=== PATIENT | female | born 1970 | race Caucasian/White ===

== ENCOUNTER 2018-02-05 03:49 | Emergency (ER) | END 2018-02-05 06:26 | disposition home or self-care (01) ==

== ENCOUNTER 2018-03-15 16:23 | Emergency (ER) | END 2018-03-15 20:24 | disposition home or self-care (01) ==

== ENCOUNTER 2018-06-21 06:41 | Emergency (ER) | payer MEDICAID ==
[~2018-06-21] VITALS: Ht 167.6 cm; Wt 65.1 kg
[~2018-06-21 06:41] MED LIST: IBUP-1542 PO; LORA-441 PO; METH750T93 PO; NAPR-985 PO; POLY17PO6 PO; SULF1TAB31 PO
[2018-06-21 06:45] VITALS: BP 141/67; PULSE 72; RESP 20; Ht 167.6 cm; Wt 65.1 kg
[2018-06-21] MEDS ORDERED: KETOROLAC 60 MG INJ IM STA (07:17)
[2018-06-21] MEDS ORDERED: METHYLPREDNISOLONE ACET 80 MG/ML 1 ML IM ONE (07:30)
[2018-06-21] MEDS ORDERED: DIPHENHYDRAMINE 50 MG CAP PO ONE ×2 (07:30→08:00)
[2018-06-21] MEDS ORDERED: DEXAMETHASONE 10 MG/ML 1 ML INJ IM ONE (07:30)
[2018-06-21] MEDS ORDERED: CYCLOBENZAPRINE 10 MG TAB PO ONE (07:30)
[2018-06-21] MEDS ORDERED: traMADol 50 MG TAB PO ONE (07:30)
[2018-06-21] MEDS ORDERED: TRAM50TA2 PO (08:25)
[2018-06-21] MEDS ORDERED: NAPR-985 PO (08:25)
[2018-06-21] MEDS ORDERED: BEN50 PO (08:25)
[2018-06-21] MEDS ORDERED: FLUT16SP17 NASAL (08:36)
--- NOTE | 2018-06-21 08:42 | ERD ---
ER Documentation Chief Complaint Chief Complaint Complains of severe headache x 3 days HPI 47 year-old [female] coming in today with Chief Complaint: Headache History of Present Illness: Patient coming in today with complaint of gradual onset headache for 3 days. Associated symptoms include nasal congestion, facial pain, bilateral eye pain. Denies any other associated symptoms. Ibuprofen taken at home without relief of symptoms. Denies sick contacts, denies feeling sick. Review of systems: All systems were reviewed and are negative except for what is indicated in the history of present illness. Past Medical History: [Negative for hypertension, diabetes or other medical problems] Social History: [Patient denies tobacco, alcohol, elicit drug use] Medications: [None] [Reviewed as documented Nursing Notes] Allergies: [NKDA] [Reviewed as documented in Nursing Notes] Social Concerns: Denies ROS All systems reviewed and are negative except as per history of present illness. Medications Home Meds Active Scripts Cyclobenzaprine Hcl* (Cyclobenzaprine Hcl*) 10 Mg Tablet, 10 MG PO TID for upper back/neck tension, #15 TAB Prov:ELMA VALLEJO NP 06/21/18 Fluticasone Propionate* (Fluticasone Propionate* Nasal) 50 Mcg/[place] - 16 Gm [place].susp, 1 SPRAY NASAL DAILY for nasal congetion, #1 BOTTLE TO EACH NOSTRIL Prov:ELMA VALLEJO NP 06/21/18 Diphenhydramine Hcl* (Benadryl*) 50 Mg Cap, 50 MG PO QHS PRN for sinus headache at night, #30 CAP Prov:ELMA VALLEJO NP 06/21/18 Naproxen* (Naprosyn*) 500 Mg Tablet, 500 MG PO BID PRN for PAIN AND/OR INFLAMMATION, #30 TAB Prov:ELMA VALLEJO NP 06/21/18 Tramadol HCl (Tramadol HCl) 50 Mg Tablet, 50 MG PO Q6 PRN for PAIN LEVEL 6-10, #10 TAB Prov:ELMA VALLEJO NP 06/21/18 Methocarbamol* (Robaxin*) 750 Mg Tablet, 750 MG PO TID PRN for MUSCLE SPASMS, #30 TAB Prov:DANO GONZALEZ DO 03/15/18 Ibuprofen* (Motrin*) 600 Mg Tab, 600 MG PO Q6H PRN for PAIN AND OR ELEVATED TEMP, #30 TAB Prov:DANO GONZALEZ DO 03/15/18 Polyethylene Glycol* (Miralax*) 17 Gm Powd.pack, 17 GM PO DAILY, #30 PACKET Prov:DANO MACKENZIE MD 02/05/18 Ibuprofen* (Motrin*) 600 Mg Tab, 600 MG PO Q6H PRN for PAIN AND OR ELEVATED TEMP, #20 TAB Prov:DANO MACKENZIE MD 02/05/18 Sulfamethoxazole/Trimethoprim* (Bactrim Ds* Tablet) 1 Each Tablet, 1 TAB PO BID, #14 TAB Prov:DANO MACKENZIE MD 02/05/18 Lorazepam* (Ativan*) 0.5 Mg Tablet, 0.5 MG PO Q8, #3 TAB Prov:ALESIA SALGUERO DO 10/08/15 Naproxen* (Naprosyn*) 500 Mg Tablet, 500 MG PO BID PRN for PAIN AND/OR INFLAMMATION, #14 TAB Prov:ALESIA SALGUERO DO 10/08/15 Discontinued Scripts Cyclobenzaprine Hcl* (Cyclobenzaprine Hcl*) 10 Mg Tablet, 10 MG PO TID for upper back/neck tension, #15 TAB Prov:ELMA VALLEJO NP 06/21/18 Allergies Allergies: Coded Allergies: No Known Allergy (Unverified , 10/08/15) PMhx/Soc History of Surgery: Yes (c section ) Anesthesia Reaction: No Hx Neurological Disorder: No Hx Respiratory Disorders: No Hx Cardiac Disorders: No Hx Psychiatric Problems: No Hx Miscellaneous Medical Probl: No Hx Alcohol Use: No Hx Substance Use: No Hx Tobacco Use: No FmHx Family History: No diabetes, No coronary disease Physical Exam Vitals Vital Signs Date Temp Pulse Resp B/P (MAP) Pulse Ox O2 O2 Flow FiO2 Time Delivery Rate 06/21/18 99.1 72 20 141/67 97 06:45 (91) Physical Exam Const: No acute distress Head: Atraumatic; tenderness to palpation over frontal and maxillary sinuses. Eyes: Normal Conjunctiva ENT: Normal External Ears, Mouth; erythema to nasal mucosa, turbinates swollen Neck: Full range of motion. No meningismus, patient able to move neck without difficulty. Tenderness to palpation to trapezius muscles. Resp: Clear to auscultation bilaterally Cardio: Regular rate and rhythm, no murmurs Abd: Soft, non tender, non distended. Normal bowel sounds Skin: No petechiae or rashes Back: No midline or flank tenderness Ext: No cyanosis, or edema Neur: Awake and alert. Patient speaking in clear sentences. Neuro exam unremarkable. Cranial nerves intact. Psych: Normal Mood and Affect Results 24 hrs Laboratory Tests Test 06/21/18 07:43 POC Beta HCG, Qualitative NEGATIVE Current Medications Medications Dose Sig/Santana Start Time Status Last (Trade) Ordered Route PRN Stop Time Admin Dose Reason Admin Ketorolac 60 mg ONCE STAT 06/21/18 DC 06/21/18 Tromethamine IM 07:17 06/21/18 07:45 (Toradol) 07:24 10 mg ONCE ONCE 06/21/18 DC 06/21/18 Cyclobenzapri PO 07:30 06/21/18 07:41 ne HCl 07:31 (Flexeril) 25 mg ONCE ONCE 06/21/18 DC Diphenhydrami PO 07:30 06/21/18 ne HCl 07:44 (Benadryl) Tramadol 50 mg ONCE ONCE 06/21/18 DC 06/21/18 HCl PO 07:30 06/21/18 07:41 (Ultram) 07:31 8 mg ONCE ONCE 06/21/18 DC 06/21/18 Dexamethasone IM 07:30 06/21/18 07:45 (Decadron) 07:31 80 mg ONCE ONCE 06/21/18 DC 06/21/18 Methylprednis IM 07:30 06/21/18 07:54 olone 07:31 Acetate (Depo-Medrol 80 Mg/ml 1 ml) 50 mg ONCE ONCE 06/21/18 DC 06/21/18 Diphenhydrami PO 08:00 06/21/18 07:54 ne HCl 08:01 (Benadryl) Procedures/MDM ED course includes a thorough examination and history. ED course includes medication; steroid/cortisone and dexamethasone for inflammation of sinus cavities and headache, Toradol for inflammation and pain, cyclobenzaprine for muscle spasm of trapezius muscle, diphenhydramine for nasal congestion, tramadol for pain. Low suspicion for life-threatening medical emergency or neurological medical emergency or stroke. Otherwise healthy patient presenting with constellation of symptoms likely representing uncomplicated sinusitis as characterized by history, physical exam findings. No respiratory distress, otherwise relatively well appearing and nontoxic. P atient educated on diagnoses [diphenhydramine for allergic rhinitis/sinusitis, tramadol for headache, cyclobenzaprine for muscle spasm, fluticasone for nasal congestion, Naprosyn for pain/inflammation], prescriptions, follow-up care, return precautions. Strict return precautions given for worsening condition; questions answered discharge. Disposition for discharge with followup in 2-3 days with PCP/clinic. If sinusitis symptoms continue, may need to start antibiotic therapy in 4 days. Education given on saline irrigation at home. Departure Diagnosis: Primary Impression: Maxillary sinusitis, acute Recurrence: non-recurrent Qualified Codes: J01.00 - Acute maxillary sinusitis, unspecified Additional Impressions: Sinusitis, acute frontal Recurrence: non-recurrent Qualified Codes: J01.10 - Acute frontal sinusitis, unspecified Tension headache Condition: Stable Patient Instructions: Tension Headaches, Sinus Headaches, Sinusitis, No Abx Referrals: [facility] Usted se gaffney hecho un examen mdico de control que le indica que no est en cat condicin que requiera tratamiento urgente en el Departamento de Emergencia. Un estudio ms profundo y el tratamiento de hinojosa condicin pueden esperar sin ningn riesgo hasta que usted sea atendida/o en el consultorio de hinojosa mdico o cat clnica. Es responsabilidad suya arreglar cat dominik para el seguimiento del [place]. MANEJO DE CONDICIONES NO URGENTES EN EL FUTURO 1) Si usted tiene un mdico de atencin primaria: Usted debera llamar a hinojosa mdico de atencin primaria antes de venir al departamento de emergencia. Despus de las horas de consultorio, hinojosa doctor o hinojosa asociado/a est disponible por telfono. El mdico o enfermero de renee en el servicio telefnico puede asesorarle por [facility] para atender el problema, o [place] contrario se puede programar cat dominik. 2) Si usted no tiene un mdico de atencin primaria: Llame al mdico o clnica de referencia que aparece abajo christina las horas de consultorio para hacer cat dominik para que le vean. CLINICAS: [facility] [phone] [facility] [phone] [place] [phone] [place] [phone] [address] [place] [address] [phone] [facility]. [phone] [address] [facility]. [facility] () Usted se gaffney hecho un examen mdico de control que le indica que no est en cat condicin que requiera tratamiento urgente en el Departamento de Emergencia. Un estudio ms profundo y el tratamiento de hinojosa condicin pueden esperar sin ningn riesgo hasta que usted sea atendida/o en el consultorio de hinojosa mdico o cat clnica. Es responsabilidad suya arreglar cat dominik para el seguimiento del [place]. MANEJO DE CONDICIONES NO URGENTES EN EL FUTURO 1) Si usted tiene un mdico de atencin primaria: Usted debera llamar a hinojosa mdico de atencin primaria antes de venir al departamento de emergencia. Despus de las horas de consultorio, hinojosa doctor o hinojosa asociado/a est disponible por telfono. El mdico o enfermero de renee en el servicio telefnico puede asesorarle por [facility] medio para atender el problema, o [place] contrario se puede programar cat dominik. 2) Si usted no tiene un mdico de atencin primaria: Llame al mdico o condado institucions de referencia que aparece abajo christina las horas de consultorio para hacer cat dominik para que le vean. SI USTED NO PUEDE PAGAR PARA IRVING UN MEDICO puede ir a: [facility] [address] [place] [address] [facility] [address] [place] [address] [facility] [address] [place] [address] [facility] [address] [place], [place] [id number] Additional Instructions: Call your primary care doctor TODAY for an appointment during the next 2-3 days to ensure your condition is getting better.See the doctor sooner or return here if your condition worsens before your appointment time. Nasal Saline irrigation at home twice daily. If you have worsening symptoms (severe headache unrelieved with medication, nausea, vomitting, changes in vision, numbness/tingling), return to hospital. Take Naproxen for next 5 days, then as needed for headache. Take Tramadol for next 2 days for pain level 6-10. Take diphenhydramine at night for the sinusitis. If you still have face pain and headache by 05/28/2018, you may need antibiotics for sinusits. Llame a hinojosa mdico de atencin primaria HOY MISMA para cat dominik christina los prximos 2 a 3 sanz para asegurarse de que hinojosa condicin est mejorando. Consulte al mdico antes o vuelva aqu si hinojosa condicin empeora antes de hinojosa dominik. [place] salino nasal en domicilio dos veces al da. Si tiene sntomas que empeoran (dolor de tonny samanta no se arnulfo con medicamentos, nuseas, vmitos, cambios en la visin, entumecimiento / hormigueo), regrese al hospital. [place] Naproxen christina los prximos 5 asnz, luego segn sea necesario para el dolor de tonny. [place] Tramadol christina los prximos 2 sanz para el nivel de dolor 6-10. [place] difenhidramina por la noche para la sinusitis. Si an tiene dolor en la denzel y dolor de tonny antes del 05/28/2018, es posible que necesite antibiticos para la sinusitis. ELMA VALLEJO NP Jun 21, 2018 08:42
[2018-06-21] MEDS ORDERED: CYCL10TA7 PO ×3 (08:44→08:48)
== END 2018-06-21 08:55 | disposition home or self-care (01) ==
LOC: FTE 06:41
DX: J01.00 Acute maxillary sinusitis, unspecified (principal); J01.10 Acute frontal sinusitis, unspecified; G44.209 Tension-type headache, unspecified, not intractable
CPT/HCPCS: 81025; 96372; J1040; J1100; J1885; Z7502; Z7610

== ENCOUNTER 2018-09-07 17:34 | Emergency (ER) | payer MEDICAID ==
[~2018-09-07] VITALS: Ht 142.2 cm; Wt 65.0 kg
[~2018-09-07 17:34] MED LIST changes: +BEN50 PO; +CYCL10TA7 PO; +FLUT16SP17 NASAL; +TRAM50TA2 PO
[2018-09-07 17:58] VITALS: Ht 142.2 cm; Wt 65.0 kg
[2018-09-07] MEDS ORDERED: KETOROLAC 15 MG INJ IM STA (18:26)
[2018-09-07] MEDS ORDERED: METHOCARBAMOL 750 MG TAB PO ONE (18:30)
[2018-09-07] MEDS ORDERED: ACET-141 PO (19:31)
[2018-09-07] MEDS ORDERED: METH750T93 PO (19:31)
--- NOTE | 2018-09-07 19:37 | ERD ---
ER Documentation Chief Complaint Chief Complaint RIGHT ELBOW PAIN WITH SWELLING HPI 48-year-old female presents for right arm pain x2 days. 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 She denies any trauma. She states that the pain is 6 out of 10. Pain is described as a dull sensation. She took some ibuprofen with mild relief however the pain returns. She denies any fevers or chills. Denies any chest pain or shortness of breath. No other modifying factors noted, no other treatments tried at home ROS All systems reviewed and are negative except as per history of present illness. Medications Home Meds Active Scripts Acetaminophen* (Acetaminophen*) 500 MG Extra Strength Tablet, 500 MG PO Q4H PRN for PAIN AND OR ELEVATED TEMP, #30 TAB Prov:DANO GONZALEZ DO 09/07/18 Methocarbamol* (Robaxin*) 750 Mg Tablet, 750 MG PO TID PRN for MUSCLE SPASMS, #30 TAB Prov:DANO GONZALEZ DO 09/07/18 Cyclobenzaprine Hcl* (Cyclobenzaprine Hcl*) 10 Mg Tablet, 10 MG PO TID for upper back/neck tension, #15 TAB Prov:ELMA VALLEJO NP 06/21/18 Fluticasone Propionate* (Fluticasone Propionate* Nasal) 50 Mcg/[place] - 16 Gm [place].susp, 1 SPRAY NASAL DAILY for nasal congetion, #1 BOTTLE TO EACH NOSTRIL Prov:ELMA VALLEJO NP 06/21/18 Diphenhydramine Hcl* (Benadryl*) 50 Mg Cap, 50 MG PO QHS PRN for sinus headache at night, #30 CAP Prov:ELMA VALLEJO NP 06/21/18 Naproxen* (Naprosyn*) 500 Mg Tablet, 500 MG PO BID PRN for PAIN AND/OR INFLAMMATION, #30 TAB Prov:ELMA VALLEJO NP 06/21/18 Tramadol HCl (Tramadol HCl) 50 Mg Tablet, 50 MG PO Q6 PRN for PAIN LEVEL 6-10, #10 TAB Prov:ELMA VALLEJO NP 06/21/18 Methocarbamol* (Robaxin*) 750 Mg Tablet, 750 MG PO TID PRN for MUSCLE SPASMS, #30 TAB Prov:DANO GONZALEZ DO 03/15/18 Ibuprofen* (Motrin*) 600 Mg Tab, 600 MG PO Q6H PRN for PAIN AND OR ELEVATED TEMP, #30 TAB Prov:DANO GONZALEZ DO 03/15/18 Polyethylene Glycol* (Miralax*) 17 Gm Powd.pack, 17 GM PO DAILY, #30 PACKET Prov:DANO MACKENZIE MD 02/05/18 Ibuprofen* (Motrin*) 600 Mg Tab, 600 MG PO Q6H PRN for PAIN AND OR ELEVATED TEM P, #20 TAB Prov:DANO MACKENZIE MD 02/05/18 Sulfamethoxazole/Trimethoprim* (Bactrim Ds* Tablet) 1 Each Tablet, 1 TAB PO BID, #14 TAB Prov:DANO MACKENZIE MD 02/05/18 Lorazepam* (Ativan*) 0.5 Mg Tablet, 0.5 MG PO Q8, #3 TAB Prov:ALESIA SALGUERO DO 10/08/15 Naproxen* (Naprosyn*) 500 Mg Tablet, 500 MG PO BID PRN for PAIN AND/OR INFLAMMATION, #14 TAB Prov:ALESIA SALGUERO DO 10/08/15 Allergies Allergies: Coded Allergies: No Known Allergy (Unverified , 10/08/15) PMhx/Soc History of Surgery: Yes (c section ) Anesthesia Reaction: No Hx Neurological Disorder: No Hx Respiratory Disorders: No Hx Cardiac Disorders: No Hx Psychiatric Problems: No Hx Miscellaneous Medical Probl: No Hx Alcohol Use: No Hx Substance Use: No Hx Tobacco Use: No Smoking Status: Never smoker FmHx Family History: No coronary disease Physical Exam Vitals Vital Signs Date Temp Pulse Resp B/P (MAP) Pulse Ox O2 O2 Flow FiO2 Time Delivery Rate 09/07/18 98.4 74 18 155/75 98 17:58 (101) Physical Exam Const: No acute distress Neck: Full range of motion. No meningismus. Resp: Clear to auscultation bilaterally Cardio: Regular rate and rhythm, no murmurs, peripheral pulses intact Abd: Soft, non tender, non distended. Normal bowel sounds Skin: No petechiae or rashes Back: No midline or flank tenderness Ext: Diffuse tenderness palpation over the entire right arm., There is no swelling noted, 5 out of 5 muscle strength in the right arm. Neur: Awake and alert, sensation over the right arm intact Psych: Normal Mood and Affect Results 24 hrs Laboratory Tests Test 09/07/18 18:45 POC Beta HCG, Qualitative NEGATIVE Current Medications Medications Dose Sig/[place] Start Time Status Last (Trade) Ordered Route PRN Stop Time Admin Dose Reason Admin Ketorolac 15 mg ONCE STAT 09/07/18 DC 09/07/18 Tromethamine IM 18:26 19:08 (Toradol) 09/07/18 18:27 750 mg ONCE ONCE 09/07/18 DC 09/07/18 Methocarbamol PO 18:30 19:08 (Robaxin) 09/07/18 18:31 Procedures/MDM Medical Decision Making: Differential diagnosis includes but not limited to fracture, dislocation, muscle strain, ligamentous sprain. Patient appeared well on physical exam. There was tenderness over the entire right arm, upper and lower Patient was neurovascularly intact ED course: Patient was given Toradol and Robaxin. Symptoms improved with treatment. Patient's right arm pain is likely musculoskeletal in nature. Prescription(s): Patient given prescription for supportive medication(s). Patient advised to follow up with PCP in 1-2 days. Patient advised to return to ED for new or worsening symptoms. Patient stable on discharge from the ED. Disclaimer: Inadvertent spelling and grammatical errors are likely due to EHR/dictation software use and do not reflect on the overall quality of patient care. Also, please note that the electronic time recorded on this note does not necessarily reflect the actual time of the patient encounter. Departure Diagnosis: Primary Impression: Right arm pain Condition: Fair Patient Instructions: Pain Management Referrals: [facility] YOU HAVE RECEIVED A MEDICAL SCREENING EXAM AND THE RESULTS INDICATE THAT YOU DO NOT HAVE A CONDITION THAT REQUIRES URGENT TREATMENT IN THE EMERGENCY DEPARTMENT. FURTHER EVALUATION AND TREATMENT OF YOUR CONDITION CAN WAIT UNTIL YOU ARE SEEN IN YOUR DOCTORS OFFICE WITHIN THE NEXT 1-2 DAYS. IT IS YOUR RESPONSIBILITY TO MAKE AN APPOINTMENT FOR FOLOW-UP CARE. IF YOU HAVE A PRIMARY DOCTOR --you should call your primary doctor and schedule an appointment IF YOU DO NOT HAVE A PRIMARY DOCTOR YOU CAN CALL OUR PHYSICIAN REFERRAL HOTLINE AT IF YOU CAN NOT AFFORD TO SEE A PHYSICIAN YOU CAN CHOSE FROM THE FOLLOWING [facility] [address] [facility] [address] [facility] [address] [facility] [address] [facility]. [facility] [address] [facility]. [facility] [address] [facility]. [facility]. [address] Additional Instructions: Llame al doctor MAANA y sesar cat JACKY PARA DENTRO DE 1-2 CONTRERAS.Dgale a la secretaria que nosotros le instruimos hacer esta jacky.Avise o llame si hinojosa condicin se empeora antes de la jacky. Regresa aqui si peor o no mejor. DANO GONZALEZ DO September 07, 2018 19:37
[2018-09-07 20:03] VITALS: BP 156/72; PULSE 69; RESP 18
== END 2018-09-07 20:04 | disposition home or self-care (01) ==
LOC: FTE 17:34
DX: M79.601 Pain in right arm (principal)
CPT/HCPCS: 81025; 96372; J1885; Z7502; Z7610